=== PATIENT | female | born 1995 | race African-American/Black ===

== ENCOUNTER → 2018-04-07 | Outpatient (CLI) | payer OTHER ==
--- NOTE | 2018-04-08 08:32 | US ---
EXAMINATION TYPE: US pelvis complete transvag DATE OF EXAM: 04/07/2018 COMPARISON: NONE CLINICAL HISTORY: N94.6 Dysmennorhea. no cycle for 2 months TECHNIQUE: TA and TV. Transabdominal sonographic images of the pelvis were acquired. Transvaginal sonographic images were medically necessary to better assess the following anatomy: uterus and endome trium Date of LMP: 02/02/2018 EXAM MEASUREMENTS: Uterus: 7.1 x 3.7 x 2.7 cm Endometrial Stripe: 0.5 cm Right Ovary: 2.4 x 2.0 x 1.8 cm Left Ovary: 2.6 x 1.5 x 1.6 cm 1. Uterus: Anteverted wnl 2. Endometrium: wnl 3. Right Ovary: wnl 4. Left Ovary: wnl. 5. Bilateral Adnexa: wnl 6. Posterior cul-de-sac: wnl IMPRESSION: 1. Normal pelvic ultrasound.
== END | disposition home or self-care (01) ==
LOC: RADUSWWP 15:56
PROVIDERS: ATTEND Internal Medicine
DX: N94.6 Dysmenorrhea, unspecified (principal)
CPT/HCPCS: 76830; 76856

== ENCOUNTER → 2018-12-24 | Outpatient (CLI) | payer OTHER ==
--- NOTE | 2018-12-24 15:29 | US ---
EXAMINATION TYPE: Transabdominal DATE OF EXAM: 12/24/2018 3:10 PM COMPARISON: NONE CLINICAL HISTORY: Z36 Confirm dates. Confirm dates, 1 EXAM PERFORMED: Transabdominal (TA) EXAM MEASUREMENTS: GESTATIONAL AGE / DATING Physician Established: (10 weeks/0 days) EDC: 07/22/2019 Dates by LMP: (10 weeks/0 days) EDC: 07/22/2019 Dates by First Scan: This is 1st scan Dates by Current Scan for: ( 8 weeks/5 days) EDC: 07/31/2019 MATERNAL ANATOMY Uterus: 9.4 x 4.3 x 5.2cm Right Ovary: 2.6 x 1.5 x 1.6cm Left Ovary: 2.5 x 1.5 x 1.5cm Post CDS / Adnexa: wnl Presence of free fluid: no Presence of corpus luteal cyst: not seen Presence of subchorionic bleed: no GESTATION / SURVEY CRL: 2.1cm (8 weeks/5 days) Yolk Sac (normal less than 6mm): 4.5mm Heart Rate: 168 bpm Rhythm: Normal IUP: Viable IUP Date of LMP: 10/15/2018 Beta HcG (if available): Not available at time of exam. IMPRESSION: Viable single IUP measuring 8 weeks 5 days with a heart rate of 168bpm and an estimated delivery date of 07/31/2019.
== END | disposition home or self-care (01) ==
LOC: RADUSWWP 14:50
PROVIDERS: ATTEND Obstetrics & Gynecology
DX: Z36.89 Encounter for other specified antenatal screening (principal); Z3A.08 8 weeks gestation of pregnancy
CPT/HCPCS: 76801

== ENCOUNTER 2019-02-18 11:54 | Emergency (ER) | payer OTHER ==
[2019-02-18 12:37] VITALS: RESP 18
--- NOTE | 2019-02-18 13:06 | ED ---
General Adult HPI - General Chief complaint: Chest Pain Stated complaint: Chest Pain-16 weeks Time Seen by Provider: 02/18/19 12:00 Source: patient, RN notes reviewed Mode of arrival: ambulatory Limitations: no limitations - History of Present Illness Initial comments: This is a 23-year-old female who 16 weeks . Patient comes in for she has some chest wall pain. Patient states it only hurts if she twists moves indicated takes a deep breath per patient denies any shortness of breath. Patient denies any pain while lying still per patient denies any palpations. Patient denies any difficulty breathing. Patient denies any recent fever chills or cough per patient denies lightheadedness dizziness or near syncopal episode. Patient denies any swelling to her legs or calf tenderness. Patient states currently just lying in bed she has no symptoms whatsoever. Patient states when she does have the symptoms there sharp pains and they only last a second or 2. - Related Data Home Medications Medication Instructions Recorded Confirmed Naproxen [Naprosyn] 500 mg PO Q12H PRN 04/21/16 08/07/16 Previous Rx's Medication Instructions Recorded Albuterol Inhaler [Ventolin Hfa 1 - 2 puff INHALATION Q4-6H PRN #1 08/07/16 Inhaler] inhaler Azithromycin [Zithromax Z-pack] 0 mg PO DIRECTED #6 tab 08/07/16 Allergies Allergy/AdvReac Type Severity Reaction Status Date / Time No Known Allergies Allergy Verified 02/18/19 12:39 Review of Systems ROS Statement: Those systems with pertinent positive or pertinent negative responses have been documented in the HPI. ROS Other: All systems not noted in ROS Statement are negative. Past Medical History Past Medical History: No Reported History Additional Past Medical History / Comment(s): back pain History of Any Multi-Drug Resistant Organisms: None Reported Past Surgical History: No Surgical Hx Reported Past Psychological History: Anxiety, Depression Smoking Status: Current every day smoker Past Alcohol Use History: None Reported Past Drug Use History: None Reported General Exam - General Exam Comments Initial Comments: GENERAL: Patient is well-developed and well-nourished. Patient is nontoxic and well- hydrated and is in no acute distress. ENT: Neck is soft and supple. No significant lymphadenopathy is noted. Oropharynx is clear. Moist mucous membranes. Neck has full range of motion without eliciting any pain. EYES: The sclera were anicteric and conjunctiva were pink and moist. Extraocular movements were intact and pupils were equal round and reactive to light. Eyelids were unremarkable. PULMONARY: Unlabored respirations. Good breath sounds bilaterally. No audible rales rhonchi or wheezing was noted. CARDIOVASCULAR: There is a regular rate and rhythm without any murmurs gallops or rubs. ABDOMEN: Soft and nontender with normal bowel sounds. SKIN: Skin is clear with no lesions or rashes and otherwise unremarkable. NEUROLOGIC: Patient is alert and oriented x3. Cranial nerves II through XII are grossly intact. Motor and sensory are also intact. Normal speech, volume and content. Symmetrical smile. MUSCULOSKELETAL: Normal extremities with adequate strength and full range of motion. LYMPHATICS: No significant lymphadenopathy is noted PSYCHIATRIC: Normal psychiatric evaluation. Limitations: no limitations Course Vital Signs 02/18/19 12:00 Temperature 98.7 F Pulse Rate 77 Respiratory 18 Rate Blood Pressure 116/67 O2 Sat by Pulse 97 Oximetry Disposition Clinical Impression: Chest wall pain Disposition: HOME SELF-CARE Condition: Good Instructions (If sedation given, give patient instructions): Chest Wall Pain (ED) Referrals: Sukhdeep Cronin MD [Primary Care Provider] - 1-2 days Time of Disposition: 13:06
[2019-02-18 13:21] VITALS: BP 110/60; PULSE 87; TEMP 97.8
== END 2019-02-18 13:21 | disposition home or self-care (01) ==
LOC: EC 11:54
DX: O99.89 Other specified diseases and conditions complicating pregnancy, childbirth and the puerperium (principal); R07.89 Other chest pain; O99.332 Smoking (tobacco) complicating pregnancy, second trimester; F17.200 Nicotine dependence, unspecified, uncomplicated; Z3A.16 16 weeks gestation of pregnancy
CPT/HCPCS: 93005; 99284

== ENCOUNTER 2019-06-13 18:30 | Outpatient (CLI) | payer OTHER ==
[2019-06-13 19:15] VITALS: BP 120/65; PULSE 101; RESP 18; TEMP 97
--- NOTE | 2019-07-15 05:28 | P.MSEPDOC ---
Presenting Problems - Arrival Data Date of Arrival on Unit: 06/13/19 Time of Arrival on Unit: 18:35 Mode of Transport: Ambulatory - Complaint OB-Reason for Admission/Chief Complaint: Other Comment: vaginal discharge, low abdominal/vaginal pain- increased with activity. no current pain Medical History - Information : 1 Para: 0 Term: 0 : 0 Abortions: Spontaneous or Elective: 0 Number of Living Children: 0 - Gestational Age Gestational Age by JACINTO (wks/days): 33 Weeks and 1 Days - History Complications: Smoker Review of Systems - Review of Systems Constitutional: No problems Breast: No problems ENT: No problems Cardiovascular: No problems Respiratory: No problems Gastrointestinal: No problems Genitourinary: No problems Musculoskeletal: No problems Neurological: No problems Skin: No problems Vital Signs - Temperature Temperature: 97.0 F Temperature Source: Temporal Artery Scan - Pulse Right Sitting Brachial Pulse Rate: 101 Pulse Assessment Method: Automatic Cuff - Respirations Respiratory Rate: 18 Oxygen Delivery Method: Room Air O2 Sat by Pulse Oximetry: 98 - Blood Pressure Right Arm Sitting Blood Pressure: 120/65 Blood Pressure Mean: 83 Blood Pressure Source: Automatic Cuff Medical Screen Scoring (Pre) - Cervical Exam Dilation: 1-3 cm = 1 Effacement: More than 50% = 2 - Uterine Contractions Frequency: > 5 minutes apart = 1 Duration: > 40 seconds = 2 Intensity: N/A - Maternal Vital Signs Maternal Temperature: N/A Maternal Blood Pressure: N/A Signs of Preeclampsia: N/A Maternal Respirations: N/A - Maternal Trauma Maternal Trauma: N/A - Assessment - Baby A Baseline FHR: 140 Heart Rate - NICHD Category: Category I (Normal) = 0 NST: Reactive Position: N/A Station: N/A - Total Score - Baby A Total Score - Baby A: 6 - Total Score - Baby B Total Score - Baby B: 6 - Total Score - Baby C Total Score - Baby C: 6 - Level of Risk - Baby A Level of Risk - Baby A: Medium (6-9) - Level of Risk - Baby B Level of Risk - Baby B: Medium (6-9) - Level of Risk - Baby C Level of Risk - Baby C: Medium (6-9) Physician Notification (Pre) - Physician Notified Physician Notified Date: 06/13/19 Physician Notified Time: 19:00 New Order Received: Yes - Notification Comment Comment: dc home. pelvic rest. return with 5 or more contractions in one hour. labor symptoms and kick counts reviewed. Pt 1cm, to return or call with any concerns. Disposition - Disposition OB Disposition: Discharge to home Discharge Date: 06/13/19 Discharge Time: 19:14 I agree with the RN Medical Screening Exam: Yes Risk & Benefit of care provided described in d/c instruction: Yes Diagnosis: FALSE LABOR BEFORE 37 COMPLETED WEEKS OF GEST, THIRD TRI
== END 2019-06-13 19:17 | disposition home or self-care (01) ==
LOC: FBPOP 18:30
PROVIDERS: ATTEND Obstetrics & Gynecology
DX: O47.03 False labor before 37 completed weeks of gestation, third trimester (principal); Z3A.33 33 weeks gestation of pregnancy
CPT/HCPCS: 59025; 84112; G0463; 99213

== ENCOUNTER 2019-07-25 07:33 | Inpatient (IN) | payer OTHER ==
[2019-07-25] MEDS ORDERED: OXYTOCIN 10 UNIT/ML 1 ML VIAL IM PRN (08:57)
[2019-07-25] MEDS ORDERED: AMPICILLIN 2,000 MG in SODIUM CHLORIDE 0.9% 100 ML IVPB STA (08:57)
[2019-07-25] MEDS ORDERED: CARBOPROST TROMETHAMINE 250 MCG/ML 1 ML AMP IM PRN (08:57)
[2019-07-25] MEDS ORDERED: TERBUTALINE 1 MG/ML VIAL SQ PRN (08:57)
[2019-07-25] MEDS ORDERED: LIDOCAINE 0.5% (PF) 5 MG/ML (50 ML SDV) SQ PRN (08:57)
[2019-07-25] MEDS ORDERED: METHYLERGONOVINE 0.2 MG/ML 1 ML AMP IM PRN (08:57)
[2019-07-25] MEDS ORDERED: LACTATED RINGERS 1,000 ML IV SCH (09:00)
[2019-07-25 09:31] LABS: Basophils % (A) 0 %; Eosinophils # (A) 0.1 k/uL (0-0.7); Eosinophils % (A) 1 %; HCT 41.2 % (34.0-46.0); HGB 13.7 gm/dL (11.4-16.0); Lymphocytes # (A) 2.2 k/uL (1.0-4.8); Lymphocytes % (A) 22 %; MCH 29.7 pg (25.0-35.0); MCHC 33.2 g/dL (31.0-37.0); MCV 89.4 fL (80.0-100.0); Mean Platelet Volume 9.4; Monocytes # (A) 0.4 k/uL (0-1.0); Monocytes % (A) 5 %; Neutrophils # (A) 6.9 k/uL (1.3-7.7); Neutrophils % (A) 70 %; Platelet Count 274 k/uL (150-450); RBC 4.61 m/uL (3.80-5.40); RDW 14.6 % (11.5-15.5)
--- NOTE | 2019-07-25 10:00 | P.HPOB ---
History of Present Illness H&P Date: 07/25/19 Chief Complaint: [place] 23 year old presents at 39 weeks 1 day in labor. Her cervix is 5/100/-1. She is salbador every 2-4 minutes. heart tones 130 with moderate variability and reactive. Review of Systems All systems: negative Constitutional: Denies chills, Denies fever Eyes: denies blurred vision, denies pain Ears, nose, mouth and throat: Denies headache, Denies sore throat Cardiovascular: Denies chest pain, Denies shortness of breath Respiratory: Denies cough Gastrointestinal: Denies abdominal pain, Denies diarrhea, Denies nausea, Denies vomiting Genitourinary: Denies dysuria, Denies hematuria Musculoskeletal: Denies myalgias Integumentary: Denies pruritus, Denies rash Neurological: Denies numbness, Denies weakness Psychiatric: Denies anxiety, Denies depression Endocrine: Denies fatigue, Denies weight change Past Medical History Past Medical History: No Reported History Additional Past Medical History / Comment(s): back pain. Obstetric history: This is her first and she has had care with il. O+, abs neg, Rub nonimmune, RPR NR, Hep B neg, toxo neg. History of Any Multi-Drug Resistant Organisms: None Reported Past Surgical History: No Surgical Hx Reported Past Anesthesia/Blood Transfusion Reactions: No Reported Reaction Past Psychological History: Anxiety, Depression Smoking Status: Current every day smoker Past Alcohol Use History: None Reported Past Drug Use History: None Reported - Past Family History Mother Family Medical History: Diabetes Mellitus Medications and Allergies Home Medications Medication Instructions Recorded Confirmed Type Acetaminophen Tab [Tylenol Tab] 650 mg PO Q4H PRN 02/18/19 02/18/19 History Pnv,Calcium 72/Iron/Folic Acid 1 tab PO DAILY 02/18/19 02/18/19 History [ Plus Tablet] Allergies Allergy/AdvReac Type Severity Reaction Status Date / Time No Known Allergies Allergy Verified 02/18/19 13:13 Exam Osteopathic Statement: *. No significant issues noted on an osteopathic structural exam other than those noted in the History and Physical/Consult. Vital Signs Temp Pulse Resp BP 07/25/19 07:47 96.9 F L 76 16 120/83 Intake and Output 07/24/19 07/25/19 07/25/19 22:59 06:59 14:59 Other: Weight 98.43 kg Heart: Regular rate and rhythm Lungs: Clear to auscultation bilaterally Abdomen: Soft, nontender Extremities: Negative Homans sign Results Result Diagrams: 07/25/19 09:17 Assessment and Plan (1) Normal labor Current Visit: Yes Status: Acute Code(s): O80 - ENCOUNTER FOR FULL-TERM UNCOMPLICATED DELIVERY; Z37.9 - OUTCOME OF DELIVERY, UNSPECIFIED SNOMED Code(s): 29945354 Plan: 1. admit to [facility] 2. expectant management 3. anticipate normal vaginal delivery
--- NOTE | 2019-07-25 10:12 | P.MSEPDOC ---
Presenting Problems - Arrival Data Date of Arrival on Unit: 07/25/19 Time of Arrival on Unit: 07:45 Mode of Transport: Ambulatory - Complaint OB-Reason for Admission/Chief Complaint: Possible Onset of Labor Medical History - Information : 1 Para: 0 Term: 0 : 0 Abortions: Spontaneous or Elective: 0 Number of Living Children: 0 - Gestational Age Gestational Age by JACINTO (wks/days): 39 Weeks and 1 Days Review of Systems - Review of Systems Constitutional: No problems Breast: No problems ENT: No problems Cardiovascular: No problems Respiratory: No problems Gastrointestinal: No problems Genitourinary: No problems Musculoskeletal: No problems Neurological: No problems Skin: No problems Vital Signs - Temperature Temperature: 96.9 F Temperature Source: Temporal Artery Scan - Pulse Right Sitting Brachial Pulse Rate: 76 Pulse Assessment Method: Auscultation - Respirations Respiratory Rate: 16 Oxygen Delivery Method: Room Air - Blood Pressure Right Arm Sitting Blood Pressure: 120/83 Blood Pressure Mean: 95 Blood Pressure Source: Automatic Cuff Medical Screen Scoring (Pre) - Cervical Exam Dilation: 1-3 cm = 1 Effacement: More than 50% = 2 Membranes: Intact - Uterine Contractions Frequency: > or = 36 weeks =2 Duration: > 40 seconds = 2 Intensity: N/A - Maternal Vital Signs Maternal Temperature: N/A Maternal Blood Pressure: N/A Signs of Preeclampsia: N/A Maternal Respirations: N/A - Maternal Trauma Maternal Trauma: N/A - Assessment - Baby A Baseline FHR: 130 Heart Rate - NICHD Category: Category I (Normal) = 0 NST: Reactive Position: N/A Station: N/A - Total Score - Baby A Total Score - Baby A: 7 - Total Score - Baby B Total Score - Baby B: 7 - Total Score - Baby C Total Score - Baby C: 7 - Level of Risk - Baby A Level of Risk - Baby A: Medium (6-9) - Level of Risk - Baby B Level of Risk - Baby B: Medium (6-9) - Level of Risk - Baby C Level of Risk - Baby C: Medium (6-9) Physician Notification (Pre) - Physician Notified Physician Notified Date: 07/25/19 Physician Notified Time: 09:00 New Order Received: Yes - Notification Comment Comment: admit for labor Disposition - Disposition OB Disposition: Admit Discharge Date: 07/25/19 Discharge Time: 09:00 I agree with the RN Medical Screening Exam: Yes Risk & Benefit of care provided described in d/c instruction: Yes Diagnosis: ENCOUNTER FOR FULL-TERM UNCOMPLICATED DELIVERY
--- NOTE | 2019-07-25 11:32 | P.PROBDLV ---
Vaginal Delivery Note - . Vaginal Delivery Note: 23 year old presents at 39 weeks 1 day in labor. Her cervix is 5/100/-1. She is salbador every 2-4 minutes. heart tones 130 with moderate variability and reactive. Amniotomy performed at 923AM and thick meconium fluid noted. Her cervix was 7/100/-1. Her cervix was completely dilated at 1041am. She pushed and brought the baby to a small crown. I did cut a small episiotomy and then she delivered a viable male over midline episiotomy. Head del ivered OA, anterior shoulder delivered a gentle downward traction, followed by posterior shoulder and rest of body. Nose and mouth bulb suction, cord clamped and cut, infant placed on mother's abdomen. Apgars 9,9 and weight is 6#11.8oz. placenta delivered spontaneously intact, with 3 vessel cord at 1112. Vagina, cervix and perineum inspected. 2nd degree MLE repaired with 2-0 and 3-0 vicryl. EBL 200ml. mother and baby in stable condition.
[2019-07-25] MEDS ORDERED: diphenhydrAMINE 25 MG CAP PO PRN (12:03)
[2019-07-25] MEDS ORDERED: HYDROCORTISONE 2.5% RECTAL CREAM 30 GM TUBE RECTAL PRN (12:03)
[2019-07-25] MEDS ORDERED: LANOLIN CREAM 5 GM TUBE TOPICAL PRN (12:03)
[2019-07-25] MEDS ORDERED: SIMETHICONE 80 MG CHEWABLE PO PRN (12:03)
[2019-07-25] MEDS ORDERED: ZOLPIDEM 5 MG TAB PO PRN (12:03)
[2019-07-25] MEDS ORDERED: MEASLES-MUMPS-RUBELLA VACC/PF 12,500 UNIT/0.5 ML VIAL SQ ONE (12:03)
[2019-07-25] MEDS ORDERED: BENZOCAINE/MENTHOL SPRAY 1 GM/SPRAY AEROSOL TOPICAL PRN (12:03)
[2019-07-25] MEDS ORDERED: diphenhydrAMINE 50 MG CAP PO PRN (12:03)
[2019-07-25] MEDS ORDERED: WITCH HAZEL 1 EACH MED..PAD TOPICAL PRN (12:03)
[2019-07-25] MEDS ORDERED: ACETAMINOPHEN TAB 325 MG TAB PO PRN (12:03)
[2019-07-25] MEDS ORDERED: OXYTOCIN 20 UNITS/1000 ML NS 1,000 ML IV SCH (12:15)
[2019-07-25] MEDS: IBUPROFEN 600 MG TAB PO PRN ×2 (12:20→20:26)
[2019-07-25] MEDS ORDERED: AMPICILLIN 1,000 MG in SODIUM CHLORIDE 0.9% 50 ML IVPB SCH (13:00)
[2019-07-25] MEDS: SENNOSIDES-DOCUSATE SODIUM 1 EACH TAB PO SCH (20:26)
[2019-07-26] MEDS: IBUPROFEN 600 MG TAB PO PRN (05:55)
[2019-07-26 06:13] LABS: Basophils % (A) 0 %; Eosinophils # (A) 0.1 k/uL (0-0.7); Eosinophils % (A) 0 %; HCT 34.2 % (34.0-46.0); HGB 11.2 gm/dL (11.4-16.0); Lymphocytes # (A) 3.6 k/uL (1.0-4.8); Lymphocytes % (A) 30 %; MCH 29.6 pg (25.0-35.0); MCHC 32.7 g/dL (31.0-37.0); MCV 90.5 fL (80.0-100.0); Mean Platelet Volume 9.4; Monocytes # (A) 0.6 k/uL (0-1.0); Monocytes % (A) 5 %; Neutrophils # (A) 7.2 k/uL (1.3-7.7); Neutrophils % (A) 61 %; Platelet Count 254 k/uL (150-450); RBC 3.78 m/uL (3.80-5.40); RDW 14.7 % (11.5-15.5); WBC 11.9 k/uL (3.8-10.6)
[2019-07-26] MEDS: SENNOSIDES-DOCUSATE SODIUM 1 EACH TAB PO SCH ×2 (08:24→21:46)
[2019-07-27 00:04] VITALS: RESP 16
[2019-07-27 07:49] VITALS: BP 130/67; PULSE 85; TEMP 98.1
[2019-07-27] MEDS: SENNOSIDES-DOCUSATE SODIUM 1 EACH TAB PO SCH (08:08)
--- NOTE | 2019-07-27 08:10 | P.PNOBGVD ---
Subjective - Subjective Principal diagnosis: S/P NVD PPD #1 Interval history: patient seen and examined. Denies nausea, vomiting, chest pain, shortness of breath or calf pain. Patient reports: Reports appetite normal, Reports voiding normally, Reports pain well controlled, Reports ambulating normally : doing well Objective - Latest Vital Signs Latest vital signs: Vital Signs Temp Pulse Resp BP Pulse Ox 07/27/19 07:48 98.1 F 85 16 130/67 07/27/19 00:00 99.2 F 78 16 138/66 98 07/26/19 15:45 98.6 F 66 20 103/52 - Exam Lungs: bilateral: normal Chest: Normal S1, Normal S2 Extremities: Present: normal Abdomen: Present: normal appearance, soft Uterus: Present: normal, firm Assessment and Plan (1) Normal labor Current Visit: Yes Status: Resolved Code(s): O80 - ENCOUNTER FOR FULL-TERM UNCOMPLICATED DELIVERY; Z37.9 - OUTCOME OF DELIVERY, UNSPECIFIED SNOMED Code(s): 08751151 (2) Status post normal vaginal delivery Current Visit: Yes Status: Acute Code(s): [id number] - SNOMED Code(s): 108275012 Plan: 1. Continue care
--- NOTE | 2019-07-27 08:12 | P.DS ---
Providers Date of admission: 07/25/19 08:58 Expected date of discharge: 07/27/19 Attending physician: Lona Guerrero Primary care physician: Stated None - Discharge Diagnosis(es) (1) Normal labor Current Visit: Yes Status: Resolved (2) Status post normal vaginal delivery Current Visit: Yes Status: Acute Hospital Course: Patient presented in active labor. She underwent a normal vaginal delivery. Her course uncomplicated. She'll be discharged home day #2 in stable condition to follow-up with me in 6 weeks. Plan - Discharge Summary New Discharge Prescriptions: No Action Pnv,Calcium 72/Iron/Folic Acid [ Plus Tablet] 1 tab PO DAILY Acetaminophen Tab [Tylenol Tab] 650 mg PO Q4H PRN PRN Reason: Pain Discharge Medication List Acetaminophen Tab [Tylenol Tab] 650 mg PO Q4H PRN 02/18/19 [History] Pnv,Calcium 72/Iron/Folic Acid [ Plus Tablet] 1 tab PO DAILY 02/18/19 [History] Follow up Appointment(s)/Referral(s): Lona Guerrero DO [Doctor of Osteopathic Medicine] - 6 Weeks Discharge Disposition: HOME SELF-CARE
== END 2019-07-27 14:45 | disposition home or self-care (01) | DRG 807 ==
LOC: FBPOP 07:33 → 4FBP 08:58
PROVIDERS: ADMIT Obstetrics & Gynecology; ATTEND Obstetrics & Gynecology
PROC: 10E0XZZ Delivery of Products of Conception, External Approach (ICD-10-PCS; principal; 2019-07-25)
PROC: 0W8NXZZ Division of Female Perineum, External Approach (ICD-10-PCS; 2019-07-25)
DX: O77.0 Labor and delivery complicated by meconium in amniotic fluid (principal); Z37.0 Single live birth; O99.344 Other mental disorders complicating childbirth; O99.334 Smoking (tobacco) complicating childbirth; F17.200 Nicotine dependence, unspecified, uncomplicated; F41.9 Anxiety disorder, unspecified; F32.9 Major depressive disorder, single episode, unspecified; Z3A.39 39 weeks gestation of pregnancy; Z83.3 Family history of diabetes mellitus
CPT/HCPCS: 59025; 85025; 86850; 86900; 86901; 90707; 99213

== ENCOUNTER → 2020-04-07 | Outpatient (CLI) | payer OTHER | END | disposition home or self-care (01) | LOC: LABWHC1 13:00 | PROVIDERS: ATTEND Internal Medicine | DX: Z34.90 Encounter for supervision of normal pregnancy, unspecified, unspecified trimester (principal) | CPT/HCPCS: 36415; 84702 ==

== ENCOUNTER 2020-04-13 17:23 | Emergency (ER) | payer OTHER ==
[2020-04-13 17:38] VITALS: RESP 18
--- NOTE | 2020-04-13 18:09 | ED ---
General Adult HPI - General Source: patient Mode of arrival: ambulatory Limitations: no limitations <Mika Miller - Last Filed: 04/13/20 20:08> <Lakshmi Sol - Last Filed: 04/14/20 16:08> - General Chief complaint: Upper Respiratory Infection Stated complaint: cough, SOB Time Seen by Provider: 04/13/20 17:45 - History of Present Illness Initial comments: Patient is 24-year-old female, 3 week presenting to the emergency department with a chief complaint of a cough. Patient reports symptoms began about 3 days ago with gradual increase in severity. Patient reports the cough is productive in nature with yellowish sputum production. she reports wheezing over the last day and some shortness of breath. Denies any hemoptysis, unilateral leg swelling. Denies any night sweats fevers or chills. Does report a sore throat but it has otalgia or rhinorrhea. Denies any exposure to known covid-19 patient. Denies abdominal pain, nausea, vomiting. Denies posttussive emesis. States she does smoke cigarettes even through her but has not been able to since the onset of her symptoms. (Mika Miller) - Related Data Home Medications Medication Instructions Recorded Confirmed Guaifen/Phenyleph/Acetaminophn 2 tab PO Q6H PRN 04/13/20 04/13/20 [Tylenol Sinus Severe Caplet] guaiFENesin-DM 100-10MG/5ML 20 ml PO Q6H PRN 04/13/20 04/13/20 [Robitussin DM] Previous Rx's Medication Instructions Recorded Albuterol Inhaler [Ventolin Hfa 1 puff INHALATION RT-QID PRN #1 04/13/20 Inhaler] inhaler Amoxicillin/Potassium Clav 1 tab PO Q12HR #20 tab 04/13/20 [Augmentin 875-125 Tablet] Allergies Allergy/AdvReac Type Severity Reaction Status Date / Time No Known Allergies Allergy Verified 04/13/20 21:19 Review of Systems ROS Other: All systems not noted in ROS Statement are negative. <Mika Miller - Last Filed: 04/13/20 20:08> ROS Other: All systems not noted in ROS Statement are negative. <Lakshmi Sol - Last Filed: 04/14/20 16:08> ROS Statement: Those systems with pertinent positive or pertinent negative responses have been documented in the HPI. Past Medical History Past Medical History: No Reported History Additional Past Medical History / Comment(s): back pain. Obstetric history: This is her first and she has had care with me. O+, abs neg, Rub nonimmune, RPR NR, Hep B neg, toxo neg. History of Any Multi-Drug Resistant Organisms: None Reported Past Surgical History: No Surgical Hx Reported Past Anesthesia/Blood Transfusion Reactions: No Reported Reaction Smoking Status: Current every day smoker Past Alcohol Use History: None Reported Past Drug Use History: None Reported - Past Family History Mother Family Medical History: Diabetes Mellitus <Mika Miller - Last Filed: 04/13/20 20:08> General Exam Limitations: no limitations General appearance: alert, in no apparent distress, obese Head exam: Present: atraumatic, normocephalic, normal inspection Eye exam: Present: normal appearance, PERRL, EOMI Pupils: Present: normal accommodation ENT exam: Present: normal exam, normal oropharynx, mucous membranes moist, TM's normal bilaterally, normal external ear exam Neck exam: Present: normal inspection, full ROM. Absent: tenderness, lymphadenopathy Respiratory exam: Present: wheezes (Bilateral diffuse wheezing). Absent: respiratory distress, rales, rhonchi, stridor Cardiovascular Exam: Present: regular rate, normal rhythm, normal heart sounds Extremities exam: Present: normal inspection, full ROM. Absent: tenderness Back exam: Present: normal inspection, full ROM. Absent: tenderness, CVA tenderness (R), CVA tenderness (L) Neurological exam: Present: alert, oriented X3, normal gait Psychiatric exam: Present: normal affect, normal mood Skin exam: Present: warm, dry, intact, normal color <Mika Miller - Last Filed: 04/13/20 20:08> Course Vital Signs 04/13/20 04/13/20 04/13/20 17:33 18:31 18:37 Temperature 98.7 F Pulse Rate 81 81 83 Respiratory 18 Rate Blood Pressure 118/78 O2 Sat by Pulse 95 Oximetry 04/13/20 04/13/20 04/13/20 19:22 19:35 22:35 Temperature 99.2 F Pulse Rate 83 83 99 Respiratory 18 Rate Blood Pressure 119/78 O2 Sat by Pulse 96 Oximetry Medical Decision Making - Lab Data Result diagrams: 04/13/20 19:14 <Mika Miller - Last Filed: 04/13/20 20:08> - Lab Data Result diagrams: 04/13/20 19:14 04/13/20 20:04 <Lakshmi Sol - Last Filed: 04/14/20 16:08> - Medical Decision Making Patient is a 24-year-old male presenting to emergency Department with a chief complaint of a cough. On exam patient did have bilateral diffuse wheezing. Covid testing pending. X-ray reveals subtle bilateral perihilar opacities, greater on the left side. Patient was given 2 breathing treatments in the ED. On reevaluation, patient does have improvement in symptoms. Her coughing has subsided along with the wheezing. Laboratory work was obtained. CBC is u nremarkable. CMP pending. She will be discharged with albuterol and Augmentin. At this time patient care will be transferred to . (Mika Miller) I was available for consultation in the emergency department. The history and physical exam were done by the midlevel provider. I was consulted for this patients care. I reviewed the case with the midlevel provider and based on their presentation of the patient, I agree with the assessment, medical decision making and plan of care as documented. Chart was dictated using [employer] dictation software. Attempts were made to correct any dictation errors however some typographical errors may persist. Patient was seen during a national state of emergency due to the Covid-19 pandemic. Patient evaluated by myself. No signs of respiratory distress. Patient will be placed on antibiotics and an inhaler because of her positive status. Follow up with her PCP. Strict return parameters discussed. Instructed to quarantine until Covid results are finalized. Patient understood. Given first dose of antibiotics in the ED. (Lakshmi Sol) - Lab Data Lab Results 04/13/20 04/13/20 04/13/20 Range/Units 18:46 19:14 20:04 WBC 9.6 (3.8-10.6) k/uL RBC 4.73 (3.80-5.40) m/uL Hgb 13.4 (11.4-16.0) gm/dL Hct 41.6 (34.0-46.0) % MCV 87.9 (80.0-100.0) fL MCH 28.3 (25.0-35.0) pg MCHC 32.2 (31.0-37.0) g/dL RDW 13.9 (11.5-15.5) % Plt Count 256 (150-450) k/uL Neutrophils % 54 % Lymphocytes % 35 % Monocytes % 4 % Eosinophils % 3 % Basophils % 1 % Neutrophils # 5.2 (1.3-7.7) k/uL Lymphocytes # 3.4 (1.0-4.8) k/uL Monocytes # 0.4 (0-1.0) k/uL Eosinophils # 0.3 (0-0.7) k/uL Basophils # 0.1 (0-0.2) k/uL Sodium 138 (137-145) mmol/L Potassium 4.3 (3.5-5.1) mmol/L Chloride 107 (98-107) mmol/L Carbon Dioxide 22 (22-30) mmol/L Anion Gap 9 mmol/L BUN 12 (7-17) mg/dL Creatinine 0.72 (0.52-1.04) mg/dL Est GFR (CKD-EPI)AfAm >90 (>60 ml/min/1.73 sqM) Est GFR (CKD-EPI)NonAf >90 (>60 ml/min/1.73 sqM) Glucose 95 (74-99) mg/dL Calcium 9.4 (8.4-10.2) mg/dL Total Bilirubin 0.3 (0.2-1.3) mg/dL AST 22 (14-36) U/L ALT 15 (4-34) U/L Alkaline Phosphatase 92 (38-126) U/L Total Protein 6.9 (6.3-8.2) g/dL Albumin 4.2 (3.5-5.0) g/dL Coronavirus (PCR) Not Detected (Not Detected) Disposition Is patient prescribed a controlled substance at d/c from ED?: No <Mika Miller - Last Filed: 04/13/20 20:08> Time of Disposition: 21:58 <Lakshmi Sol - Last Filed: 04/14/20 16:08> Clinical Impression: Pneumonia, Cough Disposition: HOME SELF-CARE Condition: Stable Instructions (If sedation given, give patient instructions): Community Acquired Pneumonia (DC) Additional Instructions: Take prescribed medication as directed. Follow with a primary care physician. Return to emergency department if symptoms worsen. Prescriptions: Amoxicillin/Potassium Clav [Augmentin 875-125 Tablet] 1 tab PO Q12HR #20 tab Albuterol Inhaler [Ventolin Hfa Inhaler] 1 puff INHALATION RT-QID PRN #1 inhaler PRN Reason: Wheezing Referrals: Sukhdeep Cronin MD [Primary Care Provider] - 1-2 days
[2020-04-13] MEDS ORDERED: IPRATROPIUM-ALBUTEROL 3 ML NEB INHALATION STA (18:13)
--- NOTE | 2020-04-13 18:30 | XR ---
EXAMINATION: XR chest 2V DATE AND TIME: 04/13/2020 6:01 PM CLINICAL INDICATION: PHH; cough TECHNIQUE: Departmental protocol COMPARISON: 06/24/2016 FINDINGS: The overlying soft tissues are prominent, limiting visualization. The lungs are well expanded, there are a few subtle scattered perihilar linear bands of added opacity . These are nonspecific but were not visualized on the prior study. Findings can be consistent with a clinical diagnosis of developing multifocal bronchopneumonia. The pleural spaces are negative. The cardiac silhouette is not enlarged. The remainder of the mediastinal silhouette is unremarkable. The skeletal structures and soft tissues are negative for acute findings. IMPRESSION: Subtle bilateral perihilar opacities, greater on the left.
[2020-04-13] MEDS ORDERED: ALBUTEROL NEBULIZED 2.5 MG/3 ML INHALATION STA (18:52)
[2020-04-13 19:23] LABS: Basophils # (A) 0.1 k/uL (0-0.2); Basophils % (A) 1 %; Eosinophils # (A) 0.3 k/uL (0-0.7); Eosinophils % (A) 3 %; HCT 41.6 % (34.0-46.0); HGB 13.4 gm/dL (11.4-16.0); Lymphocytes # (A) 3.4 k/uL (1.0-4.8); Lymphocytes % (A) 35 %; MCH 28.3 pg (25.0-35.0); MCHC 32.2 g/dL (31.0-37.0); MCV 87.9 fL (80.0-100.0); Mean Platelet Volume 9.6; Monocytes # (A) 0.4 k/uL (0-1.0); Monocytes % (A) 4 %; Neutrophils # (A) 5.2 k/uL (1.3-7.7); Neutrophils % (A) 54 %; Platelet Count 256 k/uL (150-450); RBC 4.73 m/uL (3.80-5.40); RDW 13.9 % (11.5-15.5); WBC 9.6 k/uL (3.8-10.6)
[2020-04-13 21:09] LABS: ALT 15 U/L (4-34); AST 22 U/L (14-36); African American GFR (CKD) >90 (>60 ml/min/1.73 sqM); Albumin 4.2 g/dL (3.5-5.0); Alkaline Phosphatase 92 U/L (38-126); Anion Gap 9 mmol/L; Blood Urea Nitrogen 12 mg/dL (7-17); Calcium 9.4 mg/dL (8.4-10.2); Carbon Dioxide 22 mmol/L (22-30); Chloride 107 mmol/L (98-107); Glucose 95 mg/dL (74-99); Non-African American GFR(CKD) >90 (>60 ml/min/1.73 sqM); Potassium 4.3 mmol/L (3.5-5.1); Sodium 138 mmol/L (137-145); Total Bilirubin 0.3 mg/dL (0.2-1.3); Total Protein 6.9 g/dL (6.3-8.2)
[2020-04-13] MEDS ORDERED: AZITHROMYCIN 500 MG TAB PO STA (21:57)
[2020-04-13 22:36] VITALS: BP 119/78; PULSE 99; TEMP 99.2
== END 2020-04-13 22:36 | disposition home or self-care (01) ==
LOC: EC 17:23
DX: O99.511 Diseases of the respiratory system complicating pregnancy, first trimester (principal); J18.9 Pneumonia, unspecified organism; O99.331 Smoking (tobacco) complicating pregnancy, first trimester; F17.210 Nicotine dependence, cigarettes, uncomplicated; Z3A.01 Less than 8 weeks gestation of pregnancy; Z20.828 Contact with and (suspected) exposure to other viral communicable diseases
CPT/HCPCS: 36415; 94640 ×2; 80053; 85025; 71046; 99284; U0003

== ENCOUNTER → 2020-05-12 | Outpatient (CLI) | payer OTHER ==
[2020-05-12 10:32] LABS: HCT 40.8 % (34.0-46.0); HGB 12.9 gm/dL (11.4-16.0); MCH 28.1 pg (25.0-35.0); MCHC 31.6 g/dL (31.0-37.0); Mean Platelet Volume 9.2; Platelet Count 207 k/uL (150-450); RBC 4.59 m/uL (3.80-5.40); RDW 13.8 % (11.5-15.5); WBC 7.8 k/uL (3.8-10.6)
[2020-05-12 10:36] LABS: African American GFR (CKD) >90 (>60 ml/min/1.73 sqM); Glucose 102 mg/dL (74-99); Non-African American GFR(CKD) >90 (>60 ml/min/1.73 sqM)
[2020-05-12 22:50] LABS: Hepatitis B Surface Antigen Non-Reactive (Non-Reactive)
[2020-05-15 06:34] LABS: Toxoplasma Antibody (IgG) <3.0 IU/mL (<7.2); Toxoplasma Antibody (IgM) <3.0 AU/mL (<8.0)
== END | disposition home or self-care (01) ==
LOC: LABWHC1 09:08
PROVIDERS: ATTEND Obstetrics & Gynecology
DX: Z34.81 Encounter for supervision of other normal pregnancy, first trimester (principal)
CPT/HCPCS: 36415; 82565; 82947; 85027; 86762; 86777; 86778; 86780; 86900; 86901; 87340

== ENCOUNTER → 2020-05-24 | Outpatient (CLI) | payer OTHER ==
--- NOTE | 2020-05-24 16:22 | US ---
EXAMINATION TYPE: Transabdominal DATE OF EXAM: 05/24/2020 1:07 PM COMPARISON: NONE CLINICAL HISTORY: Z36 confirm dates. early OB EXAM PERFORMED: OBTA EXAM MEASUREMENTS: GESTATIONAL AGE / DATING Physician Established: Not yet established Dates by LMP: (16 weeks/2 days) EDC: 11/06/2020 Dates by First Scan: No previous this is first scan Dates by Current Scan for: (11 weeks/1 days) EDC: 12/12/2020 MATERNAL ANATOMY Uterus: 10.8 x 6.0 x 6.6cm Right Ovary: 2.6 x 2.0 x 1.6cm Left Ovary: not seen Post CDS / Adnexa: Normal Presence of free fluid: no Presence of corpus luteal cyst: not seen Presence of subchorionic bleed: no GESTATION / SURVEY CRL: 4.19 (11 weeks/1 days) Yolk Sac (normal less than 6mm): 0.4 Heart Rate: 155 bpm Rhythm: Normal IUP: Single viable IUP Date of LMP: 01/31/2020 IMPRESSION: 1. Single live intrauterine gestation, with heart rate of 155 bpm. Estimated gestational age 11 weeks 1 day. 2. Normal appearance of the right ovary. Left ovary is not visualized.
== END | disposition home or self-care (01) ==
LOC: RADUSWWP 12:51
PROVIDERS: ATTEND Obstetrics & Gynecology
DX: Z36.9 Encounter for antenatal screening, unspecified (principal); Z3A.11 11 weeks gestation of pregnancy
CPT/HCPCS: 76801

== ENCOUNTER 2022-02-28 21:17 | Emergency (ER) | payer OTHER ==
[2022-02-28 21:24] VITALS: BP 149/84; PULSE 99; RESP 18; TEMP 98.9
[2022-02-28] MEDS ORDERED: IBUPROFEN 600 MG TAB PO STA (21:58)
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
[2022-02-28] MEDS ORDERED: ACETAMINOPHEN TAB 500 MG TAB PO STA (22:51)
== END 2022-02-28 23:00 | disposition home or self-care (01) ==
LOC: EC 21:17
DX: R51.9 Headache, unspecified (principal); F17.200 Nicotine dependence, unspecified, uncomplicated; V89.2XXA Person injured in unspecified motor-vehicle accident, traffic, initial encounter; Y92.89 Other specified places as the place of occurrence of the external cause
CPT/HCPCS: 70450; 72125; 99284

== ENCOUNTER → 2022-06-18 | Outpatient (CLI) | payer OTHER ==
--- NOTE | 2022-06-18 19:40 | US ---
EXAMINATION TYPE: Transabdominal DATE OF EXAM: 06/18/2022 3:58 PM COMPARISON: NONE CLINICAL HISTORY: Z36.89 ENCOUNTER FOR OTHER SPECIFIED SCR. confirm dates EXAM PERFORMED: Transabdominal (TA) EXAM MEASUREMENTS: GESTATIONAL AGE / DATING Physician Established: Not yet established Dates by LMP: (12 weeks/5 days) EDC: 12/26/22 Dates by First Scan: No previous this is first scan Dates by Current Scan for: (11 weeks/1 days) EDC: 01/06/23 MATERNAL ANATOMY Uterus: 12.6 x 6.5 x 7.6cm Right Ovary: 2.7 x 2.1 x 1.7cm Left Ovary: 2.2 x 2.1 x 1.6cm Post CDS / Adnexa: appears wnl Presence of free fluid: no Presence of corpus luteal cyst: no Presence of subchorionic bleed: no GESTATION / SURVEY CRL: 4.1cm (11 weeks/1 days) Yolk Sac (normal less than 6mm): not seen Heart Rate: 170 bpm Rhythm: Normal IUP: Viable IUP Date of LMP: 03/21/22 Beta HcG (if available): Not available at this time Single live intrauterine gestation as pole and yolk sac present. Yolk sac not seen. No free flu id. Ovaries symmetric and normal in size without suspicious extraovarian adnexal mass. IMPRESSION: Single live intrauterine gestation. Mean crown-rump length 4.1 cm corresponding to 11 wee ks 1 day old fetus.
== END | disposition home or self-care (01) ==
LOC: RADUSWWP 15:37 → MERGE 15:40
PROVIDERS: ATTEND Obstetrics & Gynecology
DX: Z36.89 Encounter for other specified antenatal screening (principal)
CPT/HCPCS: 76801

== ENCOUNTER 2022-12-16 13:03 | Inpatient (IN) | payer OTHER ==
[2022-12-16] MEDS: LACTATED RINGERS 1,000 ML IV SCH ×2 (14:20→18:00)
[2022-12-16] MEDS ORDERED: CARBOPROST TROMETHAMINE 250 MCG/ML 1 ML AMP IM PRN (14:34)
[2022-12-16] MEDS ORDERED: TRANEXAMIC ACID IN NACL,ISO-OS 1,000 MG in EMPTY BAG 1 BAG IV PRN (14:34)
[2022-12-16] MEDS ORDERED: LIDOCAINE 0.5% (PF) 5 MG/ML (50 ML SDV) SQ PRN (14:34)
[2022-12-16] MEDS ORDERED: OXYTOCIN 10 UNIT/ML 1 ML VIAL IM PRN (14:34)
[2022-12-16] MEDS ORDERED: miSOPROStoL 200 MCG TAB PO PRN (14:34)
[2022-12-16] MEDS ORDERED: TERBUTALINE 1 MG/ML VIAL SQ PRN (14:34)
[2022-12-16] MEDS ORDERED: METHYLERGONOVINE 0.2 MG/ML 1 ML AMP IM PRN (14:34)
[2022-12-16 15:05] LABS: Basophils % (A) 0 %; Eosinophils # (A) 0.1 k/uL (0-0.7); Eosinophils % (A) 1 %; HCT 38.4 % (34.0-46.0); HGB 12.3 gm/dL (11.4-16.0); Hypochromasia Slight; Lymphocytes # (A) 2.1 k/uL (1.0-4.8); Lymphocytes % (A) 20 %; MCH 28.2 pg (25.0-35.0); Mean Platelet Volume 9.4; Monocytes # (A) 0.7 k/uL (0-1.0); Monocytes % (A) 6 %; Neutrophils # (A) 7.7 k/uL (1.3-7.7); Neutrophils % (A) 71 %; Platelet Count 318 k/uL (150-450); RBC 4.36 m/uL (3.80-5.40); WBC 10.8 k/uL (3.8-10.6)
[2022-12-17] MEDS: LACTATED RINGERS 1,000 ML IV SCH ×2 (00:30→07:12)
[2022-12-17] MEDS ORDERED: OXYTOCIN 30 UNITS/500 ML NS 30 UNIT in SALINE 1 500ML.BAG IV SCH ×2 (05:56→06:00)
[2022-12-17] MEDS ORDERED: ACETAMINOPHEN TAB 325 MG TAB PO PRN (10:40)
[2022-12-17] MEDS ORDERED: LANOLIN CREAM 5 GM TUBE TOPICAL PRN (10:40)
[2022-12-17] MEDS ORDERED: diphenhydrAMINE 50 MG/ML 1 ML VIAL IVP PRN ×2 (10:40)
[2022-12-17] MEDS ORDERED: BENZOCAINE/MENTHOL SPRAY 1 GM/SPRAY AEROSOL TOPICAL PRN (10:40)
[2022-12-17] MEDS ORDERED: diphenhydrAMINE 50 MG CAP PO PRN (10:40)
[2022-12-17] MEDS ORDERED: HYDROCORTISONE 2.5% RECTAL CREAM 30 GM TUBE RECTAL PRN (10:40)
[2022-12-17] MEDS ORDERED: diphenhydrAMINE 25 MG CAP PO PRN (10:40)
[2022-12-17] MEDS ORDERED: IBUPROFEN 600 MG TAB PO PRN (10:40)
[2022-12-17] MEDS ORDERED: ZOLPIDEM 5 MG TAB PO PRN (10:40)
[2022-12-17] MEDS ORDERED: SIMETHICONE 80 MG CHEWABLE PO PRN (10:40)
[2022-12-17] MEDS ORDERED: Rhogam IMMUNE GLOBULIN 1,500 UNIT/1 ML IM ONE (18:34)
--- NOTE | 2022-12-17 21:18 | P.HPOB ---
History of Present Illness H&P Date: 12/17/22 Chief Complaint: induction of labor 27 year old presents for induction of labor at 37 weeks due to intrauterine growth restriction, elevated Dopplers and 6 out of 8 biophysical profile today. Her cervix is 3 cm Ze[place] 80% effaced, -2 station. She is salbador irreg ularly. heart tones 135 with moderate variability and reactive. Review of Systems All systems: negative Constitutional: Denies chills, Denies fever Eyes: denies blurred vision, denies pain Ears, nose, mouth and throat: Denies headache, Denies sore throat Cardiovascular: Denies chest pain, Denies shortness of breath Respiratory: Denies cough Gastrointestinal: Denies abdominal pain, Denies diarrhea, Denies nausea, Denies vomiting Genitourinary: Denies dysuria, Denies hematuria Musculoskeletal: Denies myalgias Integumentary: Denies pruritus, Denies rash Neurological: Denies numbness, Denies weakness Psychiatric: Denies anxiety, Denies depression Endocrine: Denies fatigue, Denies weight change Past Medical History Past Medical History: No Reported History Additional Past Medical History / Comment(s): OB history: She's had 2 previous vaginal deliveries She has had care with [facility] for this third since about 16 weeks. O+, abs neg, Rub Imm, Treponemal ab neg, Toxo neg, HEp B neg. History of Any Multi-Drug Resistant Organisms: None Reported Past Surgical History: No Surgical Hx Reported Past Anesthesia/Blood Transfusion Reactions: No Reported Reaction Past Psychological History: No Psychological Hx Reported Additional Psychological History / Comment(s): Hx Anxiety and Depression, no issues now Smoking Status: Current every day smoker Past Alcohol Use History: None Reported Past Drug Use History: None Reported - Past Family History Mother Family Medical History: Diabetes Mellitus Medications and Allergies Home Medications Medication Instructions Recorded Confirmed Type No Known Home Medications 12/16/22 12/16/22 History Allergies Allergy/AdvReac Type Severity Reaction Status Date / Time No Known Allergies Allergy Verified 06/18/22 08:17 Exam Osteopathic Statement: *. No significant issues noted on an osteopathic structural exam other than those noted in the History and Physical/Consult. Vital Signs Temp Pulse Resp BP 12/17/22 16:00 99 F 68 16 132/75 12/17/22 12:15 97.1 F L 57 L 16 136/67 05/09/23 11:45 77 16 131/71 12/17/22 11:15 72 16 134/78 12/17/22 11:00 63 16 137/79 12/17/22 10:45 68 16 131/75 12/17/22 10:30 78 16 134/77 12/17/22 10:15 68 16 137/64 Intake and Output 12/17/22 12/17/22 12/17/22 06:59 14:59 22:59 Intake Total 8 Output Total 477 Balance -469 Intake: Intake, IV Titration 8 Amount Oxytocin 30 Units/500 ml 8 Ns 30 unit In Saline 1 500ml.bag @ Per Protocol IV .Q0M RENETTA Rx#:[id number] Output: Estimated Blood Loss 477 Other: # Voids 2 1 Heart: Regular rate and rhythm Lungs: Clear to auscultation bilaterally Abdomen: Soft, nontender Extremities: Negative Homans sign Results Result Diagrams: 12/16/22 14:00 Assessment and Plan (1) IUGR (intrauterine growth restriction) Current Visit: No Status: Resolved Code(s): [id number] - SNOMED Code(s): 16237448 (2) Encounter for induction of labor Current Visit: Yes Status: Acute Code(s): Z34.90 - ENCNTR FOR SUPRVSN OF NORMAL , UNSP, UNSP TRIMESTER SNOMED Code(s): 192981459 Plan: 1. Induction of labor with amniotomy and Pitocin 2. Anticipate normal vaginal delivery
--- NOTE | 2022-12-17 21:20 | P.PROBDLV ---
Vaginal Delivery Note - . Vaginal Delivery Note: 27 year old presents for induction of labor at 37 weeks due to intrauterine growth restriction, elevated Dopplers and 6 out of 8 biophysical profile today. Her cervix is 3 cm Zeid[place] 80% effaced, -2 station. She is salbador irregularly. heart tones 135 with moderate variability and reactive. Pitocin was started around 6:30 AM and amniotomy performed at 9 AM with clear fluid noted. Her cervix was completely dilated by 9:55 AM. She pushed, delivered a viable female infant over intact perineum. The baby delivered precipitously in the bed just before walked in the door. Nose and mouth bulb suctioned, cord clamped and cut, placed mother's abdomen. Apgars 8, 9, weight 5 lbs. 13 oz. Placenta delivered spontaneously, intact with three-vessel cord at 10:02 AM. Vagina, cervix, perineum inspected. No lacerations noted. Estimated blood loss 477 mL. Mother and baby in stable condition.
[2022-12-18] MEDS: SENNOSIDES-DOCUSATE SODIUM 1 EACH TAB PO SCH ×2 (00:43→08:19)
[2022-12-18 02:39] VITALS: BP 142/84; PULSE 78; TEMP 97.9
[2022-12-18 07:18] LABS: Basophils % (A) 0 %; Eosinophils # (A) 0.1 k/uL (0-0.7); Eosinophils % (A) 1 %; HCT 36.3 % (34.0-46.0); Hypochromasia Slight; Lymphocytes # (A) 2.6 k/uL (1.0-4.8); Lymphocytes % (A) 30 %; MCH 27.1 pg (25.0-35.0); MCHC 30.4 g/dL (31.0-37.0); MCV 89.1 fL (80.0-100.0); Mean Platelet Volume 8.6; Monocytes # (A) 0.5 k/uL (0-1.0); Monocytes % (A) 6 %; Neutrophils % (A) 59 %; Platelet Count 275 k/uL (150-450); RBC 4.07 m/uL (3.80-5.40); WBC 8.4 k/uL (3.8-10.6)
--- NOTE | 2022-12-18 08:04 | P.DS ---
Providers Date of admission: 12/16/22 13:03 Expected date of discharge: 12/18/22 Attending physician: Lona Guerrero Primary care physician: Stated None - Discharge Diagnosis(es) (1) IUGR (intrauterine growth restriction) Current Visit: No Status: Resolved (2) Encounter for induction of labor Current Visit: Yes Status: Resolved (3) Normal vaginal delivery Current Visit: No Status: Acute Hospital Course: She presented for induction of labor at 37 weeks for intrauterine growth restriction. She underwent a normal vaginal delivery. course was uneventful. She denies nausea, vomiting, chest pain, shortness of breath or any calf pain. Patient will be discharged home day #1 in stable condition to follow-up with me in 6 weeks. Plan - Discharge Summary New Discharge Prescriptions: No Action No Known Home Medications Discharge Medication List No Known Home Medications 12/16/22 [History] Follow up Appointment(s)/Referral(s): Lona Guerrero DO [Doctor of Osteopathic Medicine] - 01/28/23 11:15 am Discharge Disposition: HOME SELF-CARE
[2022-12-18 08:18] VITALS: RESP 18
== END 2022-12-18 12:16 | disposition home or self-care (01) | DRG 560 ==
LOC: 4FBP 13:03 → OBSVTOIN 13:03
PROVIDERS: ADMIT Obstetrics & Gynecology; ATTEND Obstetrics & Gynecology
PROC: 10E0XZZ Delivery of Products of Conception, External Approach (ICD-10-PCS; principal; 2022-12-17)
PROC: 3E033VJ Introduction of Other Hormone into Peripheral Vein, Percutaneous Approach (ICD-10-PCS; 2022-12-17)
PROC: 10907ZC Drainage of Amniotic Fluid, Therapeutic from Products of Conception, Via Natural or Artificial Opening (ICD-10-PCS; 2022-12-17)
DX: O36.5930 Maternal care for other known or suspected poor fetal growth, third trimester, not applicable or unspecified (principal); O99.334 Smoking (tobacco) complicating childbirth; F41.9 Anxiety disorder, unspecified; F32.A Depression, unspecified; O99.344 Other mental disorders complicating childbirth; O62.3 Precipitate labor; Z37.0 Single live birth; F17.210 Nicotine dependence, cigarettes, uncomplicated; Z3A.37 37 weeks gestation of pregnancy
CPT/HCPCS: 85025; 86850; 86900; 86901

== ENCOUNTER 2023-03-31 06:13 | Day surgery (SDC) | payer OTHER ==
[2023-03-24 12:43] VITALS: BMI 37.0
[~2023-03-31 06:13] MED LIST: DEXAMETHASONE SOD PHOSPHATE 4 MG/ML 1 ML VIAL IV ONE; HYDROmorphone 0.5 MG/0.5 ML SYRINGE IVP PRN; LIDOCAINE 1% (10MG/ML) FOR IV START INTRADERMA PRN; MIDAZOLAM 2 MG/2 ML VIAL IV PRN; ONDANSETRON 4 MG/2 ML VIAL IVP ONE; Pre Op ABX Message 1 EACH MISC MISCELLANE ONE
--- NOTE | 2023-03-31 06:26 | P.HPOB ---
History of Present Illness H&P Date: 03/31/23 Chief Complaint: family planning 27 year [id number] presents for laparoscopic tubal ligation. Review of Systems All systems: negative Constitutional: Denies chills, Denies fever Eyes: denies blurred vision, denies pain Ears, nose, mouth and throat: Denies headache, Denies sore throat Cardiovascular: Denies chest pain, Denies shortness of breath Respiratory: Denies cough Gastrointestinal: Denies abdominal pain, Denies diarrhea, Denies nausea, Denies vomiting Genitourinary: Denies dysuria, Denies hematuria Musculoskeletal: Denies myalgias Integumentary: Denies pruritus, Denies rash Neurological: Denies numbness, Denies weakness Psychiatric: Denies anxiety, Denies depression Endocrine: Denies fatigue, Denies weight change Past Medical History Past Medical History: No Reported History Additional Past Medical History / Comment(s): OB history: She's had 3 previous vaginal deliveries History of Any Multi-Drug Resistant Organisms: None Reported Past Surgical History: No Surgical Hx Reported Past Anesthesia/Blood Transfusion Reactions: No Reported Reaction Additional Past Anesthesia/Blood Transfusion Reaction / Comment(s): NO HX OF ANESTHESIA Smoking Status: Current every day smoker - Past Family History Mother Family Medical History: Diabetes Mellitus Medications and Allergies Home Medications Medication Instructions Recorded Confirmed Type No Known Home Medications 12/16/22 03/24/23 History Allergies Allergy/AdvReac Type Severity Reaction Status Date / Time No Known Allergies Allergy Verified 03/24/23 12:35 Exam Osteopathic Statement: *. No significant issues noted on an osteopathic structural exam other than those noted in the History and Physical/Consult. HEart: RRR Lungs: CTAB Abdomen: soft, nontender Extremeties: neg arnold's Assessment and Plan (1) Family planning Current Visit: No Status: Acute Code(s): Z30.09 - ENCOUNTER FOR OTH GENERAL CNSL AND ADVICE ON CONTRACEPTION SNOMED Code(s): 557454463 Plan: 1. laparoscopic tubal ligation.
[2023-03-31] MEDS: LACTATED RINGERS 1,000 ML IV SCH ×2 (07:02→07:27)
[2023-03-31 07:05] LABS: Glucose,Whole Blood 112 mg/dL (70-110)
[2023-03-31] MEDS ORDERED: BUPIVACAINE (PF) 0.25% 30 ML VIAL SQ ONE ×2 (07:24→07:57)
[2023-03-31] MEDS ORDERED: NEOSTIGMINE 1 MG/ML 10 ML VIAL ONE (07:27)
[2023-03-31] MEDS ORDERED: LIDOCAINE 2% INJ 20 MG/ML (2 ML VIAL) ONE (07:27)
[2023-03-31] MEDS ORDERED: GLYCOPYRROLATE 0.2 MG/ML 2 ML VIAL ONE (07:27)
[2023-03-31] MEDS ORDERED: ROCURONIUM 10 MG/ML (5 ML VIAL) IV ONE (07:27)
[2023-03-31] MEDS ORDERED: SUCCINYLCHOLINE CHLORIDE 200 MG/10 ML VIAL IV ONE (07:27)
[2023-03-31] MEDS ORDERED: fentaNYL (PF) 50 MCG/ML 2 ML AMP ONE (07:27)
[2023-03-31] MEDS ORDERED: KETOROLAC 15 MG/ML 1 ML VIAL ONE (07:27)
[2023-03-31] MEDS ORDERED: PROPOFOL 10 MG/ML 20 ML VIAL IV ONE (07:27)
[2023-03-31] MEDS ORDERED: MIDAZOLAM 2 MG/2 ML VIAL ONE (07:27)
--- NOTE | 2023-03-31 08:07 | P.OP ---
Date of Procedure: 03/31/23 Preoperative Diagnosis: 1. family planning Postoperative Diagnosis: 1. family planning Procedure(s) Performed: Laparoscopic tubal ligation Anesthesia: ESTEVAN Surgeon: Lona Guerrero Estimated Blood Loss (ml): 5 IV fluids (ml): 300 Urine output (ml): 15 Pathology: none sent Condition: stable Disposition: PACU Operative Findings: Normal uterus, tubes, ovaries. Uterus sounded to 8 cm. Description of Procedure: Patient was taken to the operating room where general anesthesia was obtained without difficulty. She was prepped and draped in normal sterile fashion in the dorsal lithotomy position, legs placed in the Josafat stirrups. Bladder drained of all urine. [place] speculum placed in the vagina and the anterior lip the cervix was grasped with single-tooth tenaculum. The uterus is sounded to 8 cm and the kroner manipulator was placed. Attention was then turned to the abdomen and gloves were changed. A 10 mm infraumbilical incision was made the scalpel and 10 mm optical trocar was placed under direct visualization. A 5 mm suprapubic Incision was made and a 5 mm optical trocar was placed under direct visualization. Survey of the pelvis revealed normal uterus tubes and ovaries. The left fallopian tube was grasped with a Kleppinger and fulgurated 2-3 cm on this side in the ampullar portion. The right fallopian tube was grasped with a Kleppinger and fulgurated 2-3 cm in the ampullar portion. All instruments were then removed from the abdomen and vagina. The 10 mm infraumbilical incision was closed with 0 Vicryl and the fascial layer and then 4-0 Vicryl in a subcuticular fashion. The 5 mm incision was closed with 4-0 Vicryl in a subcuticular fashion. Patient tolerated procedure well, sponge and instrument counts correct 2 and she was taken to recovery room in stable condition.
[2023-03-31 08:14] VITALS: TEMP 97.7
[2023-03-31 09:02] VITALS: RESP 18
[2023-03-31 09:16] VITALS: BP 122/85; PULSE 62
== END 2023-03-31 09:33 | disposition home or self-care (01) ==
LOC: OR 06:13
PROVIDERS: ATTEND Obstetrics & Gynecology
DX: Z30.2 Encounter for sterilization (principal); F17.210 Nicotine dependence, cigarettes, uncomplicated; K21.9 Gastro-esophageal reflux disease without esophagitis; Z83.3 Family history of diabetes mellitus
CPT/HCPCS: 81025; 58670; J2250; J0330; J1100; J2710; J2405; J3010; J1885; J2704; J2001; J0665